=== PATIENT | female | born 1975 | race Two or more races ===

== ENCOUNTER 2022-01-22 16:13 | Emergency (ER) | payer BC ==
[~2022-01-22] VITALS: Ht 157.5 cm; Wt 61.2 kg
[2022-01-22] MEDS ORDERED: MACROBID 100 M100 MG PO (18:47)
== END 2022-01-22 19:16 | disposition home or self-care (01) ==
LOC: ER 16:13
DX: N39.0 Urinary tract infection, site not specified (principal); Z88.2 Allergy status to sulfonamides; Z88.8 Allergy status to other drugs, medicaments and biological substances

== ENCOUNTER 2022-04-20 07:11 | Emergency (ER) | payer BC ==
[~2022-04-20] VITALS: Ht 157.5 cm; Wt 60.8 kg
[~2022-04-20 07:11] MED LIST: MACROBID 100 M100 MG PO
== END 2022-04-20 08:28 | disposition home or self-care (01) ==
LOC: ER 07:11
DX: B02.8 Zoster with other complications (principal); R21 Rash and other nonspecific skin eruption; Z88.1 Allergy status to other antibiotic agents; Z88.2 Allergy status to sulfonamides

== ENCOUNTER 2022-04-21 11:37 | Emergency (ER) | payer BC ==
[~2022-04-21] VITALS: Ht 152.4 cm; Wt 60.8 kg
== END 2022-04-21 15:35 | disposition home or self-care (01) ==
LOC: ER
DX: L27.2 Dermatitis due to ingested food (principal); Z88.2 Allergy status to sulfonamides; Z88.8 Allergy status to other drugs, medicaments and biological substances

== ENCOUNTER 2022-05-21 11:55 | Emergency (ER) | payer BC ==
[~2022-05-21] VITALS: Ht 157.5 cm; Wt 61.2 kg
[2022-05-21] MEDS ORDERED: CIPRO500 MG PO (15:39)
== END 2022-05-21 17:39 | disposition home or self-care (01) ==
LOC: ER 11:55
DX: N39.0 Urinary tract infection, site not specified (principal); T78.40XA Allergy, unspecified, initial encounter